=== PATIENT | female | born 1985 | race African-American/Black ===

== ENCOUNTER 2021-12-23 23:41 | Inpatient (IN) | payer OTHER ==
[2021-12-24] MEDS ORDERED: hydrALAZINE 20 MG/ML VIAL SLOW IVP PRN ×4 (00:08)
[2021-12-24] MEDS ORDERED: Lorazepam 2 MG/ML VIAL SLOW IVP PRN (00:08)
[2021-12-24] MEDS ORDERED: diphenhydrAMINE 25 MG CAP PO PRN (00:08)
[2021-12-24] MEDS ORDERED: Zolpidem Tartrate 5 MG TAB PO PRN (00:08)
[2021-12-24] MEDS ORDERED: Labetalol HCl 100 MG/20 ML VIAL SLOW IVP PRN ×2 (00:08)
[2021-12-24] MEDS ORDERED: Docusate 100 MG CAP PO PRN (00:08)
[2021-12-24] MEDS ORDERED: Promethazine HCl 25 MG/ML VIAL IM PRN (00:08)
[2021-12-24] MEDS ORDERED: Milk Of Magnesia 30 ML UDCUP PO PRN (00:08)
[2021-12-24] MEDS ORDERED: Calcium Gluc 4.6 MEQ/10 ML (100 MG/ML) SLOW IVP PRN (00:08)
[2021-12-24] MEDS ORDERED: Boostrix 0.5 ML (Tdap) VIAL (>/=7 yrs of age) IM ONE (00:08)
[2021-12-24] MEDS ORDERED: Ondansetron PF 4 MG/2 ML Vial IVP PRN (00:08)
[2021-12-24] MEDS ORDERED: Bisacodyl 10 MG SUPP PR PRN (00:08)
[2021-12-24 00:57] VITALS: BMI 48.1
[2021-12-24 01:29] LABS: Hemoglobin 10.3 g/dL (12.0-15.5); Mean Corpuscular HGB CONC 34.1 g/dL (32.0-36.0); Mean Corpuscular Hemoglobin 29.4 pg (27.0-33.0); Mean Corpuscular Volume 86.3 fl (81.6-98.3); Mean Platelet Volume 9.1 fl (7.4-10.4); Platelet Count 199 10x3/uL (150-450); RBC Distribution Width 13.3 % (11.5-14.5); White Blood Cell (WBC) Count 8.6 10x3/uL (3.5-10.5)
[2021-12-24] MEDS: Magnesium Sulfate 20 gm/500 ml 20 GM/500 ML BAG IVPB SCH ×2 (01:31→09:37)
[2021-12-24 01:41] LABS: ALT (SGPT) 7 U/L (8-55); AST (SGOT) 16 U/L (5-34); Albumin 3.2 g/dL (3.5-5.0); Alkaline Phosphatase 121 U/L (40-110); Anion Gap 18 mmol/L (10-20); BUN (Urea Nitrogen) Less than 4 mg/dL (7.0-18.7); Bilirubin, Total 1.6 mg/dL (0.2-1.2); Calc. Creatinine Clearance 251 mL/min (70-130); Calcium 8.7 mg/dL (7.8-10.44); Carbon Dioxide 19 mmol/L (22-29); Chloride 104 mmol/L (98-107); Estimated GFR 120; Globulin 2.9 g/dL (2.4-3.5); Glucose 88 mg/dL (70-105); Potassium 3.2 mmol/L (3.5-5.1); Protein, Total 6.1 g/dL (6.0-8.3); Sodium 138 mmol/L (136-145); Uric Acid 4.8 mg/dL (2.6-6.0)
[2021-12-24 01:54] LABS: Syphilis Antibody Nonreactive (Nonreactive); Syphilis Antibody Index 0.05 S/CO (<1.00 Non-Reactive)
[2021-12-24 01:55] LABS: HBSAg Index 0.22 S/CO (0-0.99); Hep B Surf Ag Non-Reactive S/CO (NonReactive)
[2021-12-24 02:01] LABS: HIV (1/2) Antibody/Antigen Non-Reactive (NonReactive); HIV 1/2 INDEX 0.06 S/CO (<1.00)
[2021-12-24] MEDS: Ibuprofen 800 MG TAB PO SCH ×3 (07:04→22:37)
[2021-12-24] MEDS: NIFEdipine XL 30 MG TAB PO SCH (08:47)
[2021-12-24] MEDS: traMADol HCl 50 MG TAB PO PRN ×2 (12:30→21:54)
[2021-12-24] MEDS: Acetaminophen 500 MG TAB PO PRN (12:34)
[2021-12-24] MEDS: Docusate 100 MG CAP PO SCH ×2 (15:44→21:43)
[2021-12-24] MEDS: Ferrous Sulfate 325 MG TAB PO SCH ×2 (15:44→21:43)
[2021-12-25] MEDS: traMADol HCl 50 MG TAB PO PRN (05:05)
[2021-12-25] MEDS: Ibuprofen 800 MG TAB PO SCH ×3 (05:05→21:27)
[2021-12-25] MEDS: Labetalol HCl 200 MG TAB PO SCH ×2 (08:56→21:28)
[2021-12-25] MEDS: Docusate 100 MG CAP PO SCH ×2 (08:56→21:28)
[2021-12-25] MEDS: NIFEdipine XL 30 MG TAB PO SCH (08:56)
[2021-12-25] MEDS: Ferrous Sulfate 325 MG TAB PO SCH ×2 (09:03→16:27)
[2021-12-25] MEDS: Acetaminophen 500 MG TAB PO PRN (13:22)
[2021-12-26] MEDS: Acetaminophen 500 MG TAB PO PRN ×2 (00:58→08:32)
[2021-12-26] MEDS: traMADol HCl 50 MG TAB PO PRN ×2 (01:01→08:32)
[2021-12-26] MEDS: Ibuprofen 800 MG TAB PO SCH (05:43)
[2021-12-26 08:11] VITALS: TEMP 98.7
[2021-12-26] MEDS: Labetalol HCl 200 MG TAB PO SCH (08:29)
[2021-12-26] MEDS: NIFEdipine XL 30 MG TAB PO SCH (08:30)
[2021-12-26] MEDS: Ferrous Sulfate 325 MG TAB PO SCH (08:30)
[2021-12-26] MEDS: Docusate 100 MG CAP PO SCH (08:30)
[2021-12-26 11:31] VITALS: BP 139/78
== END 2021-12-26 17:30 | disposition home or self-care (01) | DRG 776 ==
LOC: CSHLD 23:41 → UNDOADMIN 23:41 → CSHLD 12-24 00:09 → CSHPP 12-24 20:55
PROVIDERS: ADMIT Family Medicine; ATTEND Family Medicine
DX: O14.15 Severe pre-eclampsia, complicating the puerperium (principal)
CPT/HCPCS: 80053; 81003; 84550; 85027; 86762; 86780; 86850; 86900; 86901; 87340; 87389; 88307; J0360; J3475